=== PATIENT | male | born 1940 | race Caucasian/White ===

== ENCOUNTER 2017-08-04 23:03 | Emergency (ER) | payer MEDICARE ==
[~2017-08-04] VITALS: Ht 167.6 cm; Wt 52.6 kg
[2017-08-04] MEDS ORDERED: MS CONTIN15 MG PO ×2 (23:19→23:23)
[2017-08-04] MEDS ORDERED: HYDROCODON-ACE1 EAC5 PO (23:20)
[2017-08-04] MEDS ORDERED: INCRUSE ELLI62.5 MCG INH (23:21)
[2017-08-04] MEDS ORDERED: ADVAIR HFA 230M12 GM INH (23:21)
[2017-08-04] MEDS ORDERED: VENTOLIN HFA 1818 GM INH (23:22)
[2017-08-05 00:58] LABS: URINE BILIRUBIN NEGATIVE (Negative); URINE BLOOD NEGATIVE (Negative); URINE CLARITY SL CLOUDY; URINE COLOR YELLOW; URINE GLUCOSE-RANDOM NEGATIVE (Negative); URINE KETONES NEGATIVE (Negative); URINE LEUKOCYTES-REFLEX NEGATIVE (Negative); URINE NITRITE-REFLEX NEGATIVE (Negative); URINE PROTEIN NEGATIVE (Negative); URINE UROBILINOGEN 0.2 E.U./dl (0.2-1.0)
[2017-08-05] MEDS ORDERED: LEVAQUIN 750 M750 MG PO (01:22)
[2017-08-05] MEDS ORDERED: NORCO 5-325 TA1 EAC1 PO (01:22)
[2017-08-05 01:50] VITALS: BP 132/78
== END 2017-08-05 01:53 | disposition home or self-care (01) ==
LOC: M.ERS 23:03
PROVIDERS: Nurse Practitioner Family
DX: J18.9 Pneumonia, unspecified organism (principal); S29.012A Strain of muscle and tendon of back wall of thorax, initial encounter; J44.9 Chronic obstructive pulmonary disease, unspecified; F17.200 Nicotine dependence, unspecified, uncomplicated; Z85.46 Personal history of malignant neoplasm of prostate; X50.1XXA Overexertion from prolonged static or awkward postures, initial encounter; Y93.89 Activity, other specified; Y92.89 Other specified places as the place of occurrence of the external cause; Y99.8 Other external cause status